=== PATIENT | female | born 2000 | race Asian ===

== ENCOUNTER → 2024-02-28 09:36 | Outpatient (REF) | payer BC, SELFPAY ==
--- NOTE | 2024-02-28 09:11 | PN.DIAED06 ---
Meal Plan - Gestational
- Breakfast
Gestational Diabetes Meal Plan Name: 1800 calories
Breakfast - Total Carbohydrate (grams): 30
Breakfast - Starch Carbohydrate: 1
Breakfast - Fruit Carbohydrate: 0
Breakfast - Milk Carbohydrate: 1
Breakfast - Nonstarchy Vegetables: Yes
Breakfast - Meat/Protein: 1
Breakfast - Fat: 2
- Morning Snack
Morning Snack - Total Carbohydrate (grams): 30
Morning Snack - Starch Carbohydrate: 1
Morning Snack - Fruit Carbohydrate: 0
Morning Snack - Milk Carbohydrate: 1
Morning Snack - Nonstarchy Vegetables: Yes
Morning Snack - Meat/Protein: 0.5
Morning Snack - Fat: 0
- Lunch
Lunch - Total Carbohydrate (grams): 45
Lunch - Starch Carbohydrate: 2
Lunch - Fruit Carbohydrate: 1
Lunch - Milk Carbohydrate: 0
Lunch - Nonstarchy Vegetables: Yes
Lunch - Meat/Protein: 2
Lunch - Fat: 1
- Afternoon Snack
Afternoon Snack - Total Carbohydrate (grams): 30
Afternoon Snack - Starch Carbohydrate: 1
Afternoon Snack - Fruit Carbohydrate: 1
Afternoon Snack - Milk Carbohydrate: 0
Afternoon Snack - Nonstarchy Vegetables: Yes
Afternoon Snack - Meat/Protein: 1
Afternoon Snack - Fat: 0
- Dinner
Dinner - Total Carbohydrate (grams): 45
Dinner - Starch Carbohydrate: 2
Dinner - Fruit Carbohydrate: 0
Dinner - Milk Carbohydrate: 1
Dinner - Nonstarchy Vegetables: Yes
Dinner - Meat/Protein: 2
Dinner - Fat: 2
- Evening Snack
Evening Snack - Total Carbohydrate (grams): 30
Evening Snack - Starch Carbohydrate: 1
Evening Snack - Fruit Carbohydrate: 0
Evening Snack - Milk Carbohydrate: 1
Evening Snack - Nonstarchy Vegetables: Yes
Evening Snack - Meat/Protein: 1
Evening Snack - Fat: 1
--- NOTE | 2024-02-28 11:01 | PN.DE ---
Diabetes Education
- -
Nancy presented for medical nutrition therapy. This is her first and she is 31 weeks gestation. She has a strong family history of type 2 diabetes. I explained glucose metabolism and what occurs during to cause increased
blood glucose levels. Discussed importance of keeping blood glucose levels within target range to prevent complication to the baby during and after . I also explained to Nancy that she is at an increased risk of developing T2DM in the
future.
I provided Nancy with an 1800 calorie gestational meal plan. She had a good knowledge of healthy nutrition prior to as she would track her macronutrients. She was recently eating a large quantity of fruit in the morning and throughout
the day. I discussed not eating fruit or juice during the morning hours and reviewed her meal plan in detail.
Nancy demonstrated proper technique in checking a fingerstick blood glucose level on a [employer] Verio glucometer. Her level was 141 mg/dL appx 1 hour after eating a banana. We discussed a plan for monitoring and I provided her written material
on target fasting and 2 hour post glucose ranges. She verbalized understanding to send her blood glucose readings to Isaura at [facility]. Nancy will reach out to the office with any concerns.
== END ==
LOC: DES 09:36
PROVIDERS: ATTENDING PHYSICIAN Advanced Practice Midwife
DX: O24.419 Gestational diabetes mellitus in pregnancy, unspecified control (principal)
CPT/HCPCS: 99078

== ENCOUNTER 2024-04-27 10:55 | Inpatient (IN) | payer BC, SELFPAY ==
[2024-04-27 11:10] VITALS: BP 133/89; BMI 36.3
[2024-04-27 12:27] LABS: Glucose - Point of Care 125 mg/dl (70-99)
[2024-04-27] MEDS: LR 1000 IV (12:37)
[2024-04-27] MEDS: VANCOCIN 535 MG IV ×2 (12:38→21:14)
[2024-04-27 12:46] LABS: % Basophils 0.6 % (0-2); % Eosinophils 0.8 % (0-6); % Immature Granulocytes 0.6 % (0-0.5); % Lymphocytes 29.4 % (20.5-51.1); % Monocytes 8.8 % (1.7-9.3); % Neutrophils 59.8 % (42.2-75.2); Absolute Lymphocytes 1.5 10^3/uL (1.2-3.4); Absolute Monocytes 0.5 10^3/uL (0.1-0.6); Absolute Neutrophils 3.1 10^3/uL (1.4-6.5); Hematocrit 37.9 % (37.0-47.0); Hemoglobin 12.7 g/dL (12.0-16.0); Mean Corp Hgb Conc. 33.5 g/dL (33.0-37.0); Mean Corpuscular Hgb 28.3 pg (27.0-31.0); Mean Corpuscular Volume 84.6 fL (81.0-99.0); Mean Platelet Volume 10.2 fL (7.4-10.4); Nucleated Red Blood Cells % 0 %; Platelet Count 178 10^3/uL (130-400); Red Blood Cell Count 4.48 10^6/uL (4.20-5.40); Red Cell Dist. Width 15.3 % (11.5-14.5); White Blood Cell Count 5.1 10^3/uL (4.8-10.8)
[2024-04-27 13:20] LABS: Glucose - Point of Care 102 mg/dl (70-99)
[2024-04-27 17:53] LABS: Glucose - Point of Care 72 mg/dl (70-99)
[2024-04-27] MEDS: STADOL 1 MG IV (20:05)
[2024-04-27 20:14] LABS: Glucose - Point of Care 74 mg/dl (70-99)
[2024-04-27 20:46] LABS: ALT (SGPT) 15 U/L (0-35); AST (SGOT) 23 U/L (14-36); Albumin 3.6 g/dl (3.5-5.0); Alkaline Phosphatase 291 U/L (38-126); Blood Urea Nitrogen 14 mg/dl (7-17); Calcium 9.7 mg/dl (8.4-10.2); Carbon Dioxide 15 mmol/L (22-30); Chloride 107 mmol/L (98-107); Estimated Creatinine Clearance 90 ml/min; Glucose 79 mg/dl (70-99); Potassium 4.2 mmol/L (3.5-5.1); Sodium 134 mmol/L (135-145); Total Bilirubin 0.7 mg/dl (0.2-1.3); Total Protein 6.6 g/dl (6.3-8.2); eGFR > 60.00
[2024-04-27] MEDS: FENTANYL/BUPIVACAINE 100 EPIDURAL (22:21)
[2024-04-27] MEDS: SUBLIMAZE 100 MCG EPIDURAL (22:21)
[2024-04-27 23:05] LABS: Glucose - Point of Care 77 mg/dl (70-99)
[2024-04-28] MEDS: LR 1000 IV ×2 (01:01→09:13)
[2024-04-28 01:06] LABS: Glucose - Point of Care 72 mg/dl (70-99)
[2024-04-28 03:00] LABS: Glucose - Point of Care 87 mg/dl (70-99)
[2024-04-28 05:00] LABS: Glucose - Point of Care 99 mg/dl (70-99)
[2024-04-28] MEDS: VANCOCIN 535 MG IV (05:09)
[2024-04-28] MEDS: FENTANYL/BUPIVACAINE 100 EPIDURAL (06:38)
[2024-04-28] MEDS: PITOCIN 30 UNITS/NSS 500 ML IV ×2 (07:03→11:15)
[2024-04-28 07:10] LABS: Urine Protein 16 mg/dl
[2024-04-28 07:11] LABS: Glucose - Point of Care 89 mg/dl (70-99)
[2024-04-28 07:22] LABS: Protein/creatinine Ratio 0.4
[2024-04-28 08:59] LABS: Glucose - Point of Care 93 mg/dl (70-99)
[2024-04-28] MEDS: STADOL 1 MG IV (09:10)
[2024-04-28] MEDS: BICITRA 30 ML PO (09:16)
[2024-04-28] MEDS: TYLENOL 1000 MG PO (09:16)
[2024-04-28] MEDS: ZITHROMAX INFUSION 250 IV (09:53)
[2024-04-28] MEDS: CLEOCIN 50 IV (09:54)
[2024-04-28] MEDS: GENTAMICIN 60 MG IV (10:03)
[2024-04-28] MEDS: TORADOL 15 MG IV ×2 (16:33→23:13)
[2024-04-28] MEDS: TYLENOL 650 MG PO (23:12)
[2024-04-29] MEDS: TYLENOL 650 MG PO ×3 (03:47→23:02)
[2024-04-29] MEDS: TORADOL 15 MG IV ×2 (04:33→10:39)
[2024-04-29 06:25] LABS: Hematocrit 30.1 % (37.0-47.0); Hemoglobin 9.8 g/dL (12.0-16.0); Mean Corp Hgb Conc. 32.6 g/dL (33.0-37.0); Mean Corpuscular Hgb 28.1 pg (27.0-31.0); Mean Corpuscular Volume 86.2 fL (81.0-99.0); Mean Platelet Volume 10.7 fL (7.4-10.4); Platelet Count 147 10^3/uL (130-400); Red Blood Cell Count 3.49 10^6/uL (4.20-5.40); Red Cell Dist. Width 15.6 % (11.5-14.5); White Blood Cell Count 16.9 10^3/uL (4.8-10.8)
[2024-04-29] MEDS: PRENATAL PLUS 1 TABLET PO (08:14)
[2024-04-29] MEDS: FEOSOL 325 MG PO (09:10)
[2024-04-29] MEDS: SENOKOT-S 1 TABLET PO (09:10)
--- NOTE | 2024-04-29 12:53 | W.PN.ANS.POP ---
Anesthesia Post Operative
- Anesthesia Post Op Note
Vital Signs Stable-See Nursing Note: Yes
Airway Patent: Yes
Adequate Pain Control: Yes
Change in Mental Status: No
Current Postoperative Nausea & Vomiting: No
Anesthesia Complications: No
General Anesthetic Recall: No
Unplanned Admission: No
Post Op Hydration Adequate: Yes
[2024-04-29] MEDS: MYLICON 80 MG PO (16:54)
[2024-04-29] MEDS: MOTRIN 600 MG PO ×2 (16:54→23:02)
[2024-04-30] MEDS: TYLENOL 650 MG PO (06:06)
[2024-04-30] MEDS: MOTRIN 600 MG PO (06:06)
[2024-04-30] MEDS: SENOKOT-S 1 TABLET PO (09:32)
[2024-04-30] MEDS: FEOSOL 325 MG PO (09:32)
[2024-04-30] MEDS: PRENATAL PLUS 1 TABLET PO (09:32)
[2024-05-02 14:27] LABS: Syphilis/T. pallidum Ab Reflex Negative (Negative)
== END 2024-04-30 10:44 | disposition home or self-care (01) | DRG 788 ==
LOC: LDRP 10:55
PROVIDERS: Obstetrics & Gynecology; ADMITTING PHYSICIAN Student in an Organized Health Care Education/Training Program
PROC: 4A1HXCZ Monitoring of Products of Conception, Cardiac Rate, External Approach (ICD-10-PCS; 2024-04-27)
PROC: 10907ZC Drainage of Amniotic Fluid, Therapeutic from Products of Conception, Via Natural or Artificial Opening (ICD-10-PCS; 2024-04-27)
PROC: 10D00Z1 Extraction of Products of Conception, Low, Open Approach (ICD-10-PCS; 2024-04-28)
DX: O41.03X0 Oligohydramnios, third trimester, not applicable or unspecified (principal); Z3A.39 39 weeks gestation of pregnancy; Z37.0 Single live birth; O24.420 Gestational diabetes mellitus in childbirth, diet controlled; O43.113 Circumvallate placenta, third trimester; O62.1 Secondary uterine inertia; O77.0 Labor and delivery complicated by meconium in amniotic fluid; O99.214 Obesity complicating childbirth; O99.824 Streptococcus B carrier state complicating childbirth; O13.4 Gestational [pregnancy-induced] hypertension without significant proteinuria, complicating childbirth; O90.81 Anemia of the puerperium; D50.9 Iron deficiency anemia, unspecified; O69.81X0 Labor and delivery complicated by cord around neck, without compression, not applicable or unspecified
CPT/HCPCS: 36415; 80053; 82570; 82962; 84156; 85025; 85027; 86780; 86850; 86900; 86901